=== PATIENT | female | born 2000 | race Caucasian/White ===

== ENCOUNTER 2023-05-08 04:40 | Emergency (ER) | payer OTHER ==
[~2023-05-08] VITALS: Ht 167.6 cm; Wt 54.4 kg
[2023-05-08 05:00] VITALS: BP 122/76; PULSE 82; RESP 17; TEMP 98.4; O2SAT 99
--- NOTE | 2023-05-08 05:00 | NUR ---
to bed ambulatory
--- NOTE | 2023-05-08 05:22 | NUR ---
Patient being evaluated by physician at bedside.
[2023-05-08] MEDS ORDERED: LORazepam 1 MG TAB PO ONE (05:30)
--- NOTE | 2023-05-08 05:30 | NUR ---
PATIENT IS A 23/f WHO CAME IN DUE TO 2 DAYS HISTORY OF ANXIETY BROUGHT ABOUT BY STRESS FROM WORK, RELATIONSHIPS AND CURRENT LIVING SITUATION. PATIENT DENIES INTENT TO HARM SELF/OTHERS. PATIENT VERBALIZED, "I WANT SOMETHING TO HELP ME TO SLEEP. I HAVEN'T HAD SLEEP FOR 24 HOURS. I TRIED TAKING MELATONIN BUT IT DIDN'T HELP."\\ PMHX: ADHD NKA
[2023-05-08 05:31] VITALS: BP 122/76; PULSE 82; RESP 17; TEMP 98.4; O2SAT 99
[2023-05-08] MEDS ORDERED: ATA25 PO (05:32)
--- NOTE | 2023-05-08 05:50 | NUR ---
Patient discharged. Written and verbal after care instructions given and explained. Patient alert, oriented and verbalized understanding of instructions. Ambulatory with steady gait. All questions addressed prior to discharge. ID band removed. Patient advised to follow up with PMD. Rx of Atarax given. Patient educated on indication of medication including possible reaction and side effects. Opportunity to ask questions provided and answered.
== END 2023-05-08 05:50 | disposition home or self-care (01) ==
LOC: MED 04:40
DX: F41.0 Panic disorder [episodic paroxysmal anxiety] (principal); F32.A Depression, unspecified; Z79.899 Other long term (current) drug therapy
CPT/HCPCS: 81025; 99283